=== PATIENT | female | born 1960 | race American Indian/Alaskan Native ===

== ENCOUNTER 2016-05-25 07:36 | Outpatient (CLI) | payer OTHER ==
--- NOTE | 2016-05-25 15:35 | Mammography Report ---
BILATERAL MAMMOGRAM: FINDINGS: There are scattered fibroglandular densities (approximately 25%-50% glandular). No mass, distortion, suspicious calcification, or skin change is seen. There are no significant changes compared to her prior examination in March 2015. CAD was utilized. IMPRESSION: Negative mammogram. There is no mammographic evidence of malignancy. RECOMMENDATION: Follow-up per ACS guidelines. BI-RADS CATEGORY: 1 = Negative ACR BI-RADS MAMMOGRAPHIC CODES: 0 = Needs additional imaging evaluation; 1 = Negative; 2 = Benign; 3 = Probably benign; 4 = Suspicious; 5 = Malignant; 6 = Known biopsy-proven malignancy COMMENT: 1. Dense breast tissue, i.e., adenosis, fibrocystic changes, etc., may obscure an underlying neoplasm. 2. Approximately 10% of cancers are not detected with mammography. 3. A negative mammography report should not delay biopsy if a clinically suspicious mass is present. COMMENT: Patient follow-up letters are generated in [employer].
== END 2016-05-25 07:37 | disposition home or self-care (01) ==
LOC: MAMMO 07:36
PROVIDERS: ATTEND Obstetrics & Gynecology
DX: Z12.31 Encounter for screening mammogram for malignant neoplasm of breast (principal)
CPT/HCPCS: 77067; G0202

== ENCOUNTER 2017-06-01 07:25 | Outpatient (CLI) | payer OTHER ==
--- NOTE | 2017-06-01 08:11 | Mammography Report ---
BILATERAL MAMMOGRAM: FINDINGS: There are scattered fibroglandular densities (approximately 25%-50% glandular). No mass, distortion, suspicious calcification, or skin change is seen. No interval change when compared to exams dating back to March 2015. CAD was utilized. IMPRESSION: Negative mammogram. There is no mammographic evidence of malignancy. RECOMMENDATION: Follow-up per ACS guidelines. BI-RADS CATEGORY: 1 = Negative ACR BI-RADS MAMMOGRAPHIC CODES: 0 = Needs additional imaging evaluation; 1 = Negative; 2 = Benign; 3 = Probably benign; 4 = Suspicious; 5 = Malignant; 6 = Known biopsy-proven malignancy COMMENT: 1. Dense breast tissue, i.e., adenosis, fibrocystic changes, etc., may obscure an underlying neoplasm. 2. Approximately 10% of cancers are not detected with mammography. 3. A negative mammography report should not delay biopsy if a clinically suspicious mass is present. COMMENT: Patient follow-up letters are generated in [employer].
== END 2017-06-01 07:26 | disposition home or self-care (01) ==
LOC: MAMMO 07:25
PROVIDERS: ATTEND Obstetrics & Gynecology
DX: Z12.31 Encounter for screening mammogram for malignant neoplasm of breast (principal)
CPT/HCPCS: 77067

== ENCOUNTER 2017-06-05 06:50 | Emergency (ER) | payer OTHER ==
[2017-06-05 07:40] VITALS: BP 104/49
[2017-06-05] MEDS ORDERED: MOTRIN PO ONE (08:18)
--- NOTE | 2017-06-05 08:19 | Emergency Department Report ---
HPI - General Chief Complaint: Upper Respiratory Infection Time Seen by Provider: 06/05/17 08:13 - HPI HPI: 56-year-old -Citizen Of [place] female comes in for complaint of upper respiratory and flulike symptoms for approximate 5 days. Patient admits to a cough and body ache chest pain intermittently worse with cough andOn her back better with lateral right side, nasal congestion, rhinorrhea, fever subjectively 101. Headache from to Monday. Patient most complaints about a decreased appetite. She reports that she is able to drink but had no desire to eat. She has tried [id number] meds last dose was a couple days ago. She does not have a primary care provider as of yet she is thinking of going to a Dr. Almaz Chavez [place]. ED Past Medical Hx - Past Medical History Previous Medical History?: Yes Additional medical history: bronchitis, hypothyroid, heart murmur - Surgical History Past Surgical History?: Yes Additional Surgical History: thyroid surgery - Social History Smoking Status: Former Smoker Substance Use Type: Non Opiate Pain, Prescribed, Other - Medications Home Medications: Home Medications Medication Instructions Recorded Confirmed Last Taken Type Amoxicillin [Trimox CAP] 500 mg PO Q8H #30 capsule 11/03/13 Unknown Rx Levothyroxine [Synthroid] 100 mcg PO QAM 11/03/13 11/03/13 11/03/13 History Nitrofurantoin Monohyd/M-Cryst 100 mg PO BID 10 Days #20 capsule 06/05/17 Unknown Rx [Macrobid 100 mg Capsule] ED Review of Systems ROS: Stated complaint: FLU LIKE SX Other details as noted in HPI Constitutional: fever, malaise Eyes: denies: eye pain, eye discharge, vision change ENT: throat pain (resolved). denies: ear pain Respiratory: cough Cardiovascular: chest pain (intermittent, under the left breast to her back.) Endocrine: no symptoms reported Gastrointestinal: other (decreased appetite) Genitourinary: denies: urgency, dysuria, discharge Musculoskeletal: back pain (left lumbar), myalgia. denies: joint swelling, arthralgia Skin: denies: rash, lesions Neurological: headache (resolved) Psychiatric: denies: anxiety, depression Hematological/Lymphatic: denies: easy bleeding, easy bruising Physical Exam - Physical Exam Vital Signs: Vital Signs 06/05/17 07:36 Temperature 98 F Pulse Rate 82 Respiratory 20 Rate Blood Pressure 104/49 O2 Sat by Pulse 98 Oximetry Physical Exam: GENERAL: Alert and oriented x3, no apparent distress, Normal Gait, atraumatic. HEAD: Head is normocephalic and a-traumatic. EYES: Extra ocular muscles are intact. Pupils are equal, round, and reactive to light and accommodation. EARS: symetrical, atraumatic, non tender, ear canal clear and moderate cerumen, tympanic membrance non inflamed. gross auditory nml bilaterally. NOSE: Nose symetrical, Nontender,Nares appeared normal. MOUTH:Tonsils nonerythematous or swollen, Uvula midline, Tongue not elevated. Mucous membranes are dry. Posterior pharynx clear, no exudate or lesions. Patent airways. NECK: Supple. Non edematous, No carotid bruits. No lymphadenopathy or thyromegaly. LUNGS: Symetrical with respiration, No wheezing, no rales or crackles, CTAB. HEART: S1, S2 present, regular rate and rhythm without murmur, no rubs, no gallops. ABDOMEN: No organomegaly was noted,Positive bowel sounds, soft, and non- distended. . Nontender to palpation on all Quadrants, NO CVA tenderness. EXTREMITIES/MUSCULOSKELETAL: No cyanosis, clubbing, rash, lesions or edema. Full ROM bilaterally. UE/LE Pulses 2+ bilaterally. LE and UE 5+ strength bilaterally NEUROLOGIC: No focal Deficit, Cranial nerves II through XII are grossly intact. No loss of sensation, No facial droop, PSYCHIATRIC: Mood is congruent with affect, denies suicidal or homicidal ideations. SKIN: Warm and dry, No lesions, No ulceration or induration present ED Course Vital Signs 06/05/17 07:36 Temperature 98 F Pulse Rate 82 Respiratory 20 Rate Blood Pressure 104/49 O2 Sat by Pulse 98 Oximetry ED Medical Decision Making - Medical Decision Making Patient has been evaluated but this provider faster. Urinalysis ordered CBC CMP , chest x-ray and EKG ordered. Results for CBC with a low WBC of 2.3. She also has a urine infection based on urinalysis. Discussed patient will place her antibiotics and have her follow-up with her primary care provider in regards to her neutropenia discussed the patient is is most likely virus induced. That she should follow with her primary care provider to have her repeat CBC and urinalysis. If neutropenic continues I have placed a referral for hematology for further evaluation. Patient verbalized understanding. I did discuss this case with Dr. Lehman in the ER. Critical care attestation.: If time is entered above; I have spent that time in minutes in the direct care of this critically ill patient, excluding procedure time. ED Disposition Clinical Impression: UTI (urinary tract infection) Qualifiers: Urinary tract infection type: site unspecified Hematuria presence: without hematuria Qualified Code(s): N39.0 - Urinary tract infection, site not specified Leukopenia Qualifiers: Leukopenia type: neutropenia Neutropenia type: unspecified Qualified Code(s): D70.9 - Neutropenia, unspecified Disposition: TO HOME OR SELFCARE Is pt being admited?: No Does the pt Need Aspirin: No Condition: Stable Instructions: Urinary Tract Infection in Women (ED) Additional Instructions: Please complete antibiotics as prescribed. I highly recommend free to follow up with her primary care provider for repeat CBC and urinalysis. And also follow up with a vice president for instruction for your low white count of 2.3. This most likely could represent a viral suppression and should return to normal after completion of her antibiotics. Prescriptions: Nitrofurantoin Monohyd/M-Cryst [Macrobid 100 mg Capsule] 100 mg PO BID 10 Days # 20 capsule Referrals: PRIMARY CARE, [Primary Care Provider] - 3-5 Days ALMAZ ARELLANO MD [Referring] - 3-5 Days JAMAR NEAL MD [Staff Physician] - 3-5 Days Forms: Work/School Release Form(ED)
--- NOTE | 2017-06-05 08:46 | XRay Report ---
ROUTINE CHEST, TWO VIEWS: HISTORY: Chest pain, cough. The trachea, heart, mediastinal contour, lung you and bony thorax are unremarkable. IMPRESSION: Unremarkable chest x-ray.
[2017-06-05 09:10] LABS: Hematocrit 43.5 % (30.3-42.9); Hemoglobin 14.3 gm/dl (10.1-14.3); Mean Corpuscular HGB Conc 33 % (30-34); Mean Corpuscular Hemoglobin 26 pg (28-32); Mean Corpuscular Volume 80 fl (79-97); Platelet Count 197 K/mm3 (140-440); Red Blood Count 5.41 M/mm3 (3.65-5.03); Red Cell Distribution Width 13.5 % (13.2-15.2)
[2017-06-05 09:21] LABS: Bacteria,Urine 1+ /HPF (Negative); Bilirubin,Urine NEG (Negative); Blood,Urine NEG (Negative); Color,Urine Amber (Yellow); Hyaline Casts,Urine 3 /LPF; Mucus,Urine 3+ /HPF; Nitrite,Urine NEG (Negative); Urobilinogen,Urine < 2.0 mg/dL (<2.0)
[2017-06-05 09:30] LABS: Alanine Aminotransferase 40 units/L (7-56); Albumin 4.1 g/dL (3.9-5); BUN/Creatinine Ratio 14; Blood Urea Nitrogen 11 mg/dL (7-17); Calcium 9.1 mg/dL (8.4-10.2); Hemolysis Index 18
[2017-06-05 09:45] LABS: Band Neutrophils # (Manual) 0.2 K/mm3; Eosinophils % (Manual) 0 % (0.0-4.3); Total Cells Counted 100
[2017-06-05 09:46] LABS: Large Platelets Few; RBC Morphology Normal
== END 2017-06-05 10:11 | disposition home or self-care (01) ==
LOC: ED 06:50
DX: N39.0 Urinary tract infection, site not specified (principal); D72.819 Decreased white blood cell count, unspecified; Z87.891 Personal history of nicotine dependence
CPT/HCPCS: 36415; 71046; 80053; 81001; 85007; 85025; 93005; 93010; 99284

== ENCOUNTER 2018-06-14 11:24 | Outpatient (CLI) | payer OTHER ==
--- NOTE | 2018-06-15 08:18 | Mammography Report ---
Bilateral mammogram: Compared to 06/01/17. CAD study utilized. Findings: Predominance adipose tissue bilaterally. No mass or microcalcification. Normal axilla. Impression: Benign findings. Annual followup recommended. BI-RADS CATEGORY: 2 = Benign ACR BI-RADS MAMMOGRAPHIC CODES: 0 = Needs additional imaging evaluation; 1 = Negative; 2 = Benign; 3 = Probably benign; 4 = Suspicious; 5 = Malignant; 6 = Known biopsy-proven malignancy COMMENT: 1. Dense breast tissue, i.e., adenosis, fibrocystic changes, etc., may obscure an underlying neoplasm. 2. Approximately 10% of cancers are not detected with mammography. 3. A negative mammography report should not delay biopsy if a clinically suspicious mass is present. COMMENT: Patient follow-up letters are generated in [employer].
== END 2018-06-14 11:25 | disposition home or self-care (01) ==
LOC: MAMMO 11:24
PROVIDERS: ATTEND Obstetrics & Gynecology
DX: Z12.31 Encounter for screening mammogram for malignant neoplasm of breast (principal); Z87.891 Personal history of nicotine dependence
CPT/HCPCS: 77067

== ENCOUNTER 2019-07-04 11:41 | Outpatient (CLI) | payer BC ==
--- NOTE | 2019-07-04 13:03 | Mammography Report ---
BILATERAL DIGITAL SCREENING MAMMOGRAM WITH CAD HISTORY: Screening mammogram. TECHNIQUE: Routine digital mammographic imaging performed. This examination was interpreted with theresa pratt benefit of Computer-aided Detection analysis. COMPARISON: 06/14/2018, 06/01/2017, 05/25/2016 FINDINGS: Breast Density: scattered fibroglandular appearance of the breast tissue. Digital CC and MLO views demonstrate no mammographic evidence of malignancy. IMPRESSION: No mammographic evidence of malignancy. If the clinical examination remains stable, recommend bilate ral mammogram in approximately one year. BIRADS 1: Negative. FURTHER INFORMATION: According to the [employer], yearly mammograms are recommend ed starting at age 40 and continuing as long as a woman is in good health. Clinical Breast Exams shou ld be part of a periodic health exam-about every 3 years for women in their 20s and 30s and every yea r for women 40 and over. Breast self exam is an option for women starting in their 20s. Any breast ch yarely noted on a breast self exam should be reported promptly to the patient's healthcare provider. Br east MRI is recommended for women with an approximately 20-25% or greater lifetime risk of breast can cer, including women with a strong family history of breast or ovarian cancer and women who have been treated for Hodgkin's disease. A negative Mammography report should not discourage follow up or biopsy of a clinically significant f inding and/or abnormality. Dense breast tissue may obscure small neoplasms. The patient will be entered into a reminder system with a target due date for the next screening mamm ogram. Signer Name: Bay Evans MD Signed: 07/04/2019 12:58 PM Workstation Name: [id number]
== END 2019-07-04 11:42 | disposition home or self-care (01) ==
LOC: MAMMO 11:41
PROVIDERS: ATTEND Obstetrics & Gynecology
DX: Z12.31 Encounter for screening mammogram for malignant neoplasm of breast (principal)
CPT/HCPCS: 77067